=== PATIENT | female | born 1985 | race Caucasian/White ===

== ENCOUNTER 2022-09-29 12:15 | Day surgery (SDC) | payer OTHER ==
[2022-09-29] MEDS ORDERED: LIDOCAINE HCL 2% 100 MG/5 ML IJ ONE (12:16)
[2022-09-29 13:01] LABS: HCG URINE TEST NEGATIVE (NEGATIVE)
[2022-09-29] MEDS ORDERED: DIPRIVAN 200 MG/20 ML IV ONE ×2 (13:56→14:00)
[2022-09-29] MEDS ORDERED: Lactated Ringers 1,000 ML IV ONE (15:07)
--- NOTE | 2022-09-29 19:06 | XRAY ---
Indication: Bilateral L4-S1 MBB. Intraoperative fluoroscopy provided for 9 seconds. Single digital spot image submitted for interpretation demonstrates posterior needle tips projecting over the expected left and right L4-S1 nerve roots. Correlate with intraoperative findings/report.
--- NOTE | 2022-09-29 19:25 | XRAY ---
9 seconds of fluoroscopy was used in surgery for a bilateral L4-S1 MBB.
== END 2022-09-29 14:23 | disposition home or self-care (01) ==
LOC: SDC-PAIN 12:15
PROVIDERS: ATTEND Psychiatry & Neurology Pain Medicine
DX: M47.816 Spondylosis without myelopathy or radiculopathy, lumbar region (principal); Z79.899 Other long term (current) drug therapy
CPT/HCPCS: 64493; 64494; 72020; 77002; 81025; J2704

== ENCOUNTER 2022-11-10 11:46 | Day surgery (SDC) | payer OTHER ==
[2022-11-10] MEDS ORDERED: BUPIVACAINE 0.5% VIAL IJ ONE (11:47)
[2022-11-10 12:12] LABS: HCG URINE TEST NEGATIVE (NEGATIVE)
[2022-11-10] MEDS ORDERED: DIPRIVAN 200 MG/20 ML IV ONE ×2 (13:22→13:28)
[2022-11-10] MEDS ORDERED: Lactated Ringers 1,000 ML IV ONE (13:38)
--- NOTE | 2022-11-10 14:24 | XRAY ---
9 seconds of fluoroscopy was used in surgery for a bilateral L4-S1 MBB.
== END 2022-11-10 13:52 | disposition home or self-care (01) ==
LOC: SDC-PAIN 11:46
PROVIDERS: ATTEND Psychiatry & Neurology Pain Medicine
DX: M47.816 Spondylosis without myelopathy or radiculopathy, lumbar region (principal); Z79.899 Other long term (current) drug therapy
CPT/HCPCS: 64493; 64494; 72020; 77002; 81025; J2704

== ENCOUNTER 2022-12-29 11:38 | Day surgery (SDC) | payer OTHER ==
[2022-12-29] MEDS ORDERED: Depo-Medrol 40 MG/ML IM ONE (11:39)
[2022-12-29] MEDS ORDERED: LIDOCAINE HCL 1% 50 MG/5 ML VL PF IJ ONE (11:39)
[2022-12-29] MEDS ORDERED: BUPIVACAINE 0.5% VIAL IJ ONE (11:39)
[2022-12-29 12:38] LABS: HCG URINE TEST NEGATIVE (NEGATIVE)
[2022-12-29] MEDS ORDERED: DIPRIVAN 200 MG/20 ML IV ONE ×2 (13:31→13:36)
[2022-12-29] MEDS ORDERED: Versed 2 MG/2 ML Injection ONE (13:36)
[2022-12-29] MEDS ORDERED: Lactated Ringers 1,000 ML IV ONE (14:14)
--- NOTE | 2022-12-29 14:44 | XRAY ---
Indication: Right L4-S1 RFA. Intraoperative fluoroscopy provided for 18 seconds. 4 digital spot image submitted for interpretation demonstrates posterior needle tips projecting over the expected right L4-S1 nerve roots. Correlate with intraoperative findings
--- NOTE | 2022-12-29 16:47 | XRAY ---
18 seconds of fluoroscopy was used in surgery for a right L4-S1 RFA.
== END 2022-12-29 14:06 | disposition home or self-care (01) ==
LOC: SDC-PAIN 11:38
PROVIDERS: ATTEND Psychiatry & Neurology Pain Medicine
DX: M47.816 Spondylosis without myelopathy or radiculopathy, lumbar region (principal); Z79.899 Other long term (current) drug therapy
CPT/HCPCS: 64635; 64636; 72100; 77002; 81025; J1030; J2001; J2250; J2704

== ENCOUNTER 2023-01-05 12:02 | Day surgery (SDC) | payer OTHER ==
[2023-01-05] MEDS ORDERED: Depo-Medrol 40 MG/ML IM ONE (12:03)
[2023-01-05] MEDS ORDERED: LIDOCAINE HCL 1% 50 MG/5 ML VL PF IJ ONE (12:03)
[2023-01-05] MEDS ORDERED: BUPIVACAINE 0.5% VIAL IJ ONE (12:03)
[2023-01-05 12:41] LABS: HCG URINE TEST NEGATIVE (NEGATIVE)
[2023-01-05] MEDS ORDERED: DIPRIVAN 200 MG/20 ML IV ONE ×2 (13:26→13:37)
[2023-01-05] MEDS ORDERED: Lactated Ringers 1,000 ML IV ONE (14:27)
--- NOTE | 2023-01-05 14:57 | XRAY ---
Indication: Left L4-S1 RFA. Intraoperative fluoroscopy provided for 23 seconds. 3 digital spot image submitted for interpretation demonstrates posterior needle tips projecting over the expected left L4-S1 nerve roots. Correlate with intraoperative findings/report.
--- NOTE | 2023-01-05 16:57 | XRAY ---
23 seconds of fluoroscopy was used in surgery for a left L4-S1 RFA.
== END 2023-01-05 14:00 | disposition home or self-care (01) ==
LOC: SDC-PAIN 12:02
PROVIDERS: ATTEND Psychiatry & Neurology Pain Medicine
DX: M47.816 Spondylosis without myelopathy or radiculopathy, lumbar region (principal)
CPT/HCPCS: 64635; 64636; 72100; 77002; 81025; J1030; J2001; J2704